=== PATIENT | female | born 1955 | race Caucasian/White ===

== ENCOUNTER → 2016-06-07 | Outpatient (CLI) | payer OTHER | END | disposition home or self-care (01) | LOC: GMAB 11:00 | PROVIDERS: ATTEND Family Medicine | DX: Z00.01 Encounter for general adult medical examination with abnormal findings (principal) ==

== ENCOUNTER → 2016-06-08 | Outpatient (CLI) | payer OTHER | LOC: RESP 13:51 | PROVIDERS: ATTEND Family Medicine | DX: R00.0 Tachycardia, unspecified (principal) ==

== ENCOUNTER → 2019-12-05 | Outpatient (CLI) | payer MEDICARE | LOC: GMAE 11:19 | PROVIDERS: ATTEND Family Medicine | DX: I10 Essential (primary) hypertension (principal); E78.5 Hyperlipidemia, unspecified ==

== ENCOUNTER 2020-01-06 14:46 | Emergency (ER) | payer MEDICARE ==
[2020-01-06] MEDS ORDERED: SODIUM CHLORIDE 0.9% 1000ML 1,000 ML IVS ONE ×2 (15:10→16:34)
[2020-01-06] MEDS ORDERED: SODIUM CHLORIDE 0.9% 1000ML 1,000 ML ONE (15:11)
--- NOTE | 2020-01-06 15:40 | RAD ---
EXAM DESCRIPTION: Chest,1 View CLINICAL HISTORY: COVID + COMPARISON: Chest radiograph dated March 01, 2019 TECHNIQUE: One view radiograph of the chest FINDINGS: Cardiac silhouette shows normal heart size. Pulmonary vascularity is within normal limits. Very subtle hazy alveolar opacities in the peripheral aspect of the bilateral upper lobes. Costophrenic angles are sharp. No pneumothorax. No acute osseous abnormality. IMPRESSION: Very subtle hazy alveolar opacities peripheral aspect bilateral upper lung lobes compatible with infectious/inflammatory processes such as pneumonia (including COVID 19 pneumonia). Recommend follow-up chest radiograph to resolution. Electronically signed by: Gerard Marquis MD 01/06/2020 3:39 PM [facility]
--- NOTE | 2020-01-06 17:05 | ED.PDOC ---
History of Present Illness - General Chief Complaint: Respiratory Problem Stated Complaint: sob, weakness Time Seen by Provider: 01/06/20 15:57 Source: patient, RN notes reviewed, Vital Signs reviewed Exam Limitations: no limitations - History of Present Illness Initial Comments: Patient is a [id number]-[id number]-year-old white female who presents with worsening malaise and fatigue with shortness of breath. Patient was diagnosed with Covid approximately 11 days ago. Patient complains she is not getting any better. Patient denies any fever or chills. She denies any cough at this time. Timing/Duration: getting worse, other - 11 days. Severity: moderate Improving Factors: nothing Worsening Factors: movement Associated Symptoms: malaise, shortness of breath, weakness Allergies/Adverse Reactions: Allergies NO KNOWN ALLERGY Allergy (Verified 01/06/20 15:09) Home Medications: Ambulatory Orders Azithromycin [Zithromax Z-Fox] 250 mg PO DAILY #6 tab 01/06/20 Prochlorperazine Tab [Compazine Tab] 10 mg PO Q6H #15 tab 01/06/20 Review of Systems - Review of Systems Constitutional: States: see HPI, malaise, weakness. Denies: chills, fever EENTM: States: no symptoms reported. Denies: eye pain, blurred vision, double vision Respiratory: States: no symptoms reported, short of breath. Denies: cough Cardiology: States: no symptoms reported. Denies: chest pain, palpitations, sy ncope Gastrointestinal/Abdominal: States: no symptoms reported. Denies: abdominal pain, diarrhea, nausea, vomiting Genitourinary: States: no symptoms reported. Denies: discharge, dysuria, frequency Skin: States: no symptoms reported. Denies: change in color, rash Neurological: States: see HPI, weakness. Denies: headache, tingling, tremors Endocrine: States: no symptoms reported. Denies: increased hunger, increased thirst, increased urine Hematologic/Lymphatic: States: no symptoms reported. Denies: blood clots, easy bleeding All other Systems: Reviewed and Negative, No Change from Baseline Family Medical History - Family History Mother Family History: Unknown Physical Exam - Physical Exam General Appearance: Alert, Anxious, Obvious distress, Well Developed, Well Groomed, Well Hydrated, Well Nourished Eye Exam: bilateral normal Ears, Nose, Throat: hearing grossly normal, normal ENT inspection, normal pharynx Neck: non-tender, full range of motion, supple Respiratory: chest non-tender, no accessory muscle use, respiratory distress - Mild, decreased breath sounds - In the bases bilaterally, rhonchi - In the bases bilaterally Cardiovascular/Chest: normal peripheral pulses, no edema, no gallop, no JVD, no murmur, tachycardia Peripheral Pulses: radial,right: 2+, radial,left: 2+ Gastrointestinal/Abdominal: normal bowel sounds, non tender, soft, no organomegaly Back Exam: normal inspection, no CVA tenderness, no vertebral tenderness Extremity: normal range of motion, non-tender, normal inspection Neurologic: senior interactive developer II-XII nml as tested, no motor/sensory deficits, alert, normal mood/affect, oriented x 3 Skin Exam: normal color, warm/dry Lymphatic: no adenopathy Progress - Progress Progress: Differential diagnosis: Pneumonia, PE, congestive heart failure, dehydration among others. 01/06/20 17:27 Patient states she is feeling much better after the IV fluids. She is still complaining of a headache. We will plan on giving her some IV Toradol and Compazine. And reassess her in 30 minutes. 01/06/20 18:09 Headache has resolved after her IV Compazine, IV Toradol and IV magnesium. We will plan on discharge home at this time. We will treat patient for pneumonia with a prescription for Zithromax and a Medrol Dosepak and Compazine. Patient's oxygen saturation has improved into the low 90s. Additionally, her heart rate is come down approximately 10 to 15% to approximately 110. Plan on discharge home at this time. I discussed this plan of care with the patient she voices understanding and agreement. Aldo Cline M.D. #[id number] - Results/Orders Results/Orders: 01/06/20 17:31 Magnesium Sulfate Inj 1 gm Sodium Chloride 0.9% 100Ml [NS (NACL 0.9%) 100ml] 100 ml IVPB ONCE Laboratory Results - last 24 hr 01/06/20 01/06/20 14:13 14:13 WBC 5.5 RBC 5.01 Hgb 14.4 Hct 41.7 MCV 83.2 MCH 28.7 MCHC 34.5 RDW 14.1 Plt Count 424 H MPV 9.6 Absolute Neuts (auto) 4.20 Absolute Lymphs (auto) 1.00 Absolute Monos (auto) 0.20 Absolute Eos (auto) 0.00 Absolute Basos (auto) 0.10 Neutrophils % 75.6 Lymphocytes % 18.6 L Monocytes % 4.4 Eosinophils % 0.0 L Basophils % 1.4 Sodium 129 L Potassium 3.4 L Chloride 87 L Carbon Dioxide 24 Anion Gap 21.4 H BUN 11 Creatinine 0.83 BUN/Creatinine Ratio 13.3 Random Glucose 104 Serum Osmolality 258.6 L Calcium 9.0 Total Bilirubin 0.9 AST 44 H ALT 23 Alkaline Phosphatase 137 H Serum Total Protein 8.3 H Albumin 3.4 Globulin 4.9 H Albumin/Globulin Ratio 0.7 L EXAM DESCRIPTION: Chest,1 View CLINICAL HISTORY: COVID + COMPARISON: Chest radiograph dated March 01, 2019 TECHNIQUE: One view radiograph of the chest FINDINGS: Cardiac silhouette shows normal heart size. Pulmonary vascularity is within normal limits. Very subtle hazy alveolar opacities in the peripheral aspect of the bilateral upper lobes. Costophrenic angles are sharp. No pneumothorax. No acute osseous abnormality. IMPRESSION: Very subtle hazy alveolar opacities peripheral aspect bilateral upper lung lobes compatible with infectious/inflammatory processes such as pneumonia (including COVID 19 pne umonia). Recommend follow-up chest radiograph to resolution. Electronically signed by: Gerard Marquis MD 01/06/2020 3:39 PM DEVELOPMENTAL TRAINING COUNSELOR Vital Signs 01/06/20 01/06/20 01/06/20 14:50 15:47 17:47 Temperature 98.0 F Pulse Rate [ 129 H 129 H pulse ox] Respiratory 21 16 18 Rate Blood Pressure 104/67 113/61 106/76 [Right Arm] O2 Sat by Pulse 91 L 84 L 90 L Oximetry 01/06/20 18:00 Temperature 98.3 F Pulse Rate [ 119 H pulse ox] Respiratory 18 Rate Blood Pressure 108/56 [Right Arm] O2 Sat by Pulse 95 Oximetry Departure - Departure Clinical Impression: Hypoxia, Dehydration Pneumonia Qualifiers: Pneumonia type: due to unspecified organism Laterality: bilateral Lung location: upper lobe of lung Qualified Code(s): J18.9 - Pneumonia, unspecified organism Migraine headache Qualifiers: Migraine type: without aura Status migrainosus presence: without status migrainosus Intractability: not intractable Qualified Code(s): G43.009 - Migraine without aura, not intractable, without status migrainosus Time of Disposition: 18:13 Disposition: Discharge to Home or Self Care Condition: Good Departure Forms: ED Discharge - Pt. Copy, Patient Portal Self Enrollment Instructions: Pneumonia, Adult (DC), Dehydration, Adult (DC), Headache, Adult (DC) Diet: resume usual diet Activity: increase activity as tolerated Referrals: ANABELL ROBLERO MD [Primary Care Provider] - 1-5 Days Prescriptions: Prochlorperazine Tab [Compazine Tab] 10 mg PO Q6H #15 tab Azithromycin [Zithromax Z-Fox] 250 mg PO DAILY #6 tab Home Medications: Ambulatory Orders Azithromycin [Zithromax Z-Fox] 250 mg PO DAILY #6 tab 01/06/20 Prochlorperazine Tab [Compazine Tab] 10 mg PO Q6H #15 tab 01/06/20
[2020-01-06] MEDS ORDERED: KETOROLAC TROMETHAMINE INJ 30 MG/ML VIAL IV ONE (17:31)
[2020-01-06] MEDS ORDERED: MAGNESIUM SULFATE INJ 1 GM in SODIUM CHLORIDE 0.9% 100ML 100 ML IVPB ONE (17:31)
[2020-01-06] MEDS ORDERED: PROCHLORPERAZINE INJ 10 MG/2 ML VIAL IV ONE (17:31)
[2020-01-06 18:02] VITALS: TEMP 98.3
[2020-01-06 18:24] VITALS: BP 108/50; O2SAT 91
== END 2020-01-06 18:24 | disposition home or self-care (01) ==
LOC: ER 14:46
DX: U07.1 COVID-19 (principal); J12.89 Other viral pneumonia; E86.0 Dehydration; R09.02 Hypoxemia; G43.009 Migraine without aura, not intractable, without status migrainosus
CPT/HCPCS: 36415; 71045; 80053; 85025; J0780; J1885; J3475; J7030; J7050

== ENCOUNTER 2020-01-07 16:47 | Observation (INO) | payer MEDICARE ==
--- NOTE | 2020-01-07 17:46 | CT ---
EXAM: CTA chest with contrast CLINICAL INDICATION: Abnormal D-dimer test COMPARISON: None. TECHNIQUE: CTA of the chest was performed using contiguous axial 2 mm postcontrast sections through the chest including IV contrast with 3-D reconstructions. This exam was performed according to our departmental dose-optimization program, which includes automated exposure control, adjustment of the mA and/or kV according to patient size and/or use of iterative reconstruction technique. FINDINGS: There is no evidence of pulmonary embolism. There are no findings to suggest aortic dissection. A few mildly prominent mediastinal lymph nodes are noted, nonspecific. The visualized portions of the upper abdominal structures are unremarkable. There are multifocal infiltrates and groundglass opacities in the periphery of both lungs. There is no pneumothorax or pleural effusion. IMPRESSION: 1. No evidence of pulmonary embolism. 2. Widespread infiltrates and groundglass opacities in the lungs consistent with pneumonia including the possibility of COVID-19. Electronically signed by: Valentin Lopez MD 01/07/2020 5:44 PM [facility]
[2020-01-07] MEDS ORDERED: AZITHROMYCIN IV 500 MG in SODIUM CHLORIDE 0.9% 250ML 250 ML IVPB ONE (17:54)
[2020-01-07] MEDS ORDERED: DEXAMETHASONE INJ 10 MG/ML VIAL IV ONE (17:54)
--- NOTE | 2020-01-07 17:58 | ED.PDOC ---
History of Present Illness - General Chief Complaint: General Stated Complaint: COVID +/elevated D dimer Time Seen by Provider: 01/07/20 16:54 Source: patient Exam Limitations: no limitations Additional Information: The patient is a 64-year-old female that presents emergency department with complaints of elevated D-dimer on lab work.Number by primary care physician.As requested by the patient's primary care physician the patient needs to be admitted , if she does not meet transfer criteria for transfer - History of Present Illness Initial Comments: Covid positive complaintsWith abnormal lab work sent by primary care physician Timing/Duration: other - 11 days Severity: mild Improving Factors: nothing Worsening Factors: nothing Associated Symptoms: cough Allergies/Adverse Reactions: Allergies NO KNOWN ALLERGY Allergy (Verified 01/06/20 15:09) Home Medications: Ambulatory Orders Azithromycin [Zithromax Z-Fox] 250 mg PO DAILY #6 tab 01/06/20 Prochlorperazine Tab [Compazine Tab] 10 mg PO Q6H #15 tab 01/06/20 Review of Systems - Review of Systems Constitutional: Denies: chills, fever EENTM: Denies: blurred vision, tearing Respiratory: States: cough. Denies: orthopnea, short of breath, stridor Cardiology: Denies: chest pain, palpitations, syncope Gastrointestinal/Abdominal: Denies: see HPI, abdominal pain, diarrhea, nausea Genitourinary: Denies: discharge, frequency, hematuria Musculoskeletal: Denies: back pain, gout, muscle pain, muscle stiffness Skin: Denies: change in color, dryness, lesions Neurological: Denies: anxiety, depressed, emotional problems, pre-existing deficit, seizure Endocrine: Denies: see HPI, excessive sweating All other Systems: Reviewed and Negative Past Medical History (General) - Patient Medical History Hx Congestive Heart Failure: No Surgical History: no surgical history - Activities of Daily Living Hospice Agency (if applicable):: None Family Medical History - Family History Mother Family History: Unknown Physical Exam - Physical Exam General Appearance: Anxious Eye Exam: bilateral normal, bilateral conjunctivae pale - normal Ears, Nose, Throat: normal ENT inspection, normal pharynx, abnormal TM (R) Neck: non-tender, full range of motion, supple Respiratory: chest non-tender, lungs clear, decreased breath sounds Cardiovascular/Chest: normal peripheral pulses, regular rate, rhythm, no edema, tachycardia Peripheral Pulses: radial,right: 2+, radial,left: 2+, posterior tibialis,right: 2+, posterior tibialis,left: 2+ Gastrointestinal/Abdominal: normal bowel sounds, non tender, soft Extremity: normal range of motion, non-tender, normal inspection Neurologic: machine stone polisher II-XII nml as tested, no motor/sensory deficits, alert, normal mood/affect Skin Exam: normal color, warm/dry Progress - Progress Progress: 01/07/20 18:01 Patient presents to emergency department with lab work obtained from a primary care physician dated today. Ovation and D-dimer and ferritin. CT angios negative for any blood clot shows bilateral patchy infiltrates consistent with Covid pneumonia. Patient states that she got Rocephin as her PCPs office today she is given a azithromycin dexamethasone and she states that she is got rEMDESIVIR in the past. The patient's primary care physician requested patient be admitted for overnight observation of her respiratory status. Please note patient in observation. Departure - Departure Clinical Impression: COVID-19, Pneumonia, Pneumonia due to 2019-nCoV Disposition: Admit Patient Departure Forms: ED Discharge - Pt. Copy, Patient Portal Self Enrollment Referrals: ANABELL ROBLERO MD [Primary Care Provider] - 1-2 Weeks Home Medications: Ambulatory Orders Azithromycin [Zithromax Z-Fox] 250 mg PO DAILY #6 tab 01/06/20 Prochlorperazine Tab [Compazine Tab] 10 mg PO Q6H #15 tab 01/06/20
[2020-01-07] MEDS ORDERED: SODIUM CHLORIDE 0.9% 1000ML 1,000 ML IVS PRN (18:00)
--- NOTE | 2020-01-07 19:33 | HP ---
SUPERVISING PHYSICIAN: Michael Randall MD CHIEF COMPLAINT: COVID HISTORY OF PRESENT ILLNESS: This is a 64 year-old female patient that has been feeling poorly since December 25. She was diagnosed with Covid-19 on January 02, 2020. She has been progressively worsening since that time and actually the day prior to coming to her primary care physician's office, she had been in the Emergency Room. They did a workup for Covid-!9 and she was discharged home. She followed up with her primary care physician this morning and Dr. Mendoza called and said she was having significant shortness of breath with weakness and worsening Covid symptoms. She was sent to the Emergency Room for a workup and to monitor her respiratory status. Her initial vital signs were temperature of 97.5, heart rate 125. Blood pressure 109/87, respiratory rate 22, oxygen saturation 95% on room air. She was notably tachypneic and has accessory muscle use. Lab studies have been done at the office and her CBC was unremarkable with PTT of 32, fibrinogen 17, D-dimer 471. Sodium 132, potassium 3, chloride 93, BUN less than 6, creatinine 0.54, calcium 8, magnesium 2, AST 53, LD 914, C- reactive protein 19.4. Troponin was less than 0.2. Blood cultures were drawn. CTA of the chest shows no evidence of pulmonary embolism and widespread infiltrates and ground glass opacities consistent with pneumonia including the possibility of Covid-19. She was placed in observation in the hospital in stable condition. PAST MEDICAL HISTORY: 1. Hyperlipidemia. 2. Hypertension. 3. C-difficile infection. 4. Fibromyalgia. PAST SURGICAL HISTORY: 1. Hysterectomy. 2. Tonsillectomy. CURRENT MEDICATIONS: ALLERGIES: Levaquin, Viibryd. FAMILY HISTORY: Positive for colon cancer, hypertension. SOCIAL HISTORY: She is , she has 2 children. She denies tobacco or illicit drug use. She does drink alcohol on a social basis. REVIEW OF SYSTEMS: GENERAL: Positive for fatigue, negative for fever or weight changes. HEENT: Negative for sinus symptoms, ear pain, vision changes, sore throat. RESPIRATORY: Positive for coughing, wheezing, shortness of breath CARDIAC: Negative for chest pain, palpitations, tachycardia. GI: Negative for nausea, vomiting, diarrhea or constipation. GENITOURINARY: Negative for hematuria, dysuria, polyuria. SKIN: Negative for lesions or rashes. NEUROLOGICAL: Positive for weakness, negative for dizziness, headaches,or seizures. PHYSICAL EXAMINATION: GENERAL: This is a 64 year-old female patient who is sitting up in her hospital bed. She is in mild respiratory distress. HEENT: Normocephalic and atraumatic. Pupils are reactive and reactive. Oropharynx is clear. NECK: Supple without mass. CHEST: A few scattered rhonchi but otherwise diminished throughout. She is slight tachypneic, especially with any exertion. CARDIOVASCULAR: ABDOMEN: Soft, nondistended, non-tender. Bowel sounds are positive. SKIN: Warm and dy. NEUROLOGIC: She is awake, alert, and oriented x3. Cranial nerves II through XII are grossly intact as tested. All labs and films are as per the history of present illness. ASSESSMENT: 1. Covid-19 pneumonitis with failed outpatient treatment. 2. History of C-difficile infection. 3. Hypertension. 4. Fibromyalgia. 5. Hyperlipidemia. PLAN: The patient has been placed in observation. She will have Covid-19 and pneumonia guidelines including Rocephin, Zithromax and Remdesivir with albuterol both p.r.n. and scheduled and Decadron. She will have a PPI for ulcer prophylaxis. Her home medications will be restarted as soon as they are verified. I will only give her 3 doses of ceftriaxone due to her increased probability of C-difficile infection. Will monitor her labs closely. Hopefully, she can be discharged in the next day or so. #[id number] [facility]
[2020-01-07] MEDS ORDERED: SODIUM CHLORIDE 0.9% (FLUSH) 10 ML SYG IV PRN (19:51)
[2020-01-07] MEDS ORDERED: ONDANSETRON INJ 4 MG/2 ML VIAL IV PRN (19:51)
[2020-01-07] MEDS ORDERED: ACETAMINOPHEN 325 MG TAB PO PRN (19:51)
[2020-01-07] MEDS ORDERED: ALBUTEROL INHALER 64 PUFF/8GM INH PRN (19:56)
[2020-01-07] MEDS ORDERED: REMDESIVIR 200 MG in SODIUM CHLORIDE 0.9% 250ML 250 ML IVPB ONE (19:56)
[2020-01-07] MEDS ORDERED: cefTRIAXone SODIUM 1 GM in SODIUM CHL 0.9% 50ML MIN-BAG+ 50 ML IVPB ONE (20:00)
[2020-01-07] MEDS ORDERED: IV SET AND CAP CHANGE INJ INJ SCH (20:00)
[2020-01-07] MEDS ORDERED: SODIUM CHLORIDE 0.9% 250ML 250 ML ONE (20:47)
[2020-01-07] MEDS ORDERED: REMDESIVIR IV 100 MG VIAL ONE (20:48)
[2020-01-07] MEDS ORDERED: SODIUM CHL 0.9% 50ML MIN-BAG+ 50 ML IVPB ONE (20:48)
[2020-01-07] MEDS ORDERED: cefTRIAXone SODIUM 1 GM VIAL ONE (20:48)
[2020-01-07] MEDS: SODIUM CHLORIDE 0.9% (FLUSH) 10 ML SYG IV SCH (21:00)
[2020-01-07] MEDS: ENOXAPARIN SODIUM 40 MG/0.4 ML SYG SUBCU SCH (21:00)
[2020-01-07] MEDS: guaiFENesin ER TAB 600 MG TAB PO SCH (21:00)
[2020-01-07] MEDS ORDERED: NON-FORMULARY MEDICATION 1 EA MIS (Melatonin [Melatonin] 10 MG) PO SCH (21:00)
[2020-01-07] MEDS ORDERED: DICYCLOMINE HCL 20 MG TAB PO PRN (21:16)
[2020-01-07] MEDS ORDERED: MELATONIN 3 MG TAB ONE (21:24)
[2020-01-07] MEDS: PREGABALIN 100 MG CAP PO SCH (21:29)
[2020-01-07] MEDS: ALBUTEROL INHALER 64 PUFF/8GM INH SCH (22:39)
[2020-01-08] MEDS: PANTOPRAZOLE SODIUM IV 40 MG VIAL IV SCH (06:03)
[2020-01-08] MEDS ORDERED: PROBIOTIC PO SCH (07:00)
--- NOTE | 2020-01-08 07:13 | RAD ---
EXAM: Chest,1 View HISTORY: covid COMPARISON: Chest 1 View AP 01/06/2020 CTA chest 01/07/2020 TECHNIQUE: Chest 1 View AP FINDINGS: Trachea midline. Heart size normal. No significant pleural effusion or pneumothorax. Overall no significant change in mild scattered hazy bilateral lung opacities. IMPRESSION: Overall no significant change in mild scattered hazy bilateral lung opacities. Electronically signed by: Juan Cloud MD 01/08/2020 7:12 AM INK GRINDER
[2020-01-08] MEDS ORDERED: AZITHROMYCIN IV 500 MG VIAL IVPB ONE (07:41)
[2020-01-08] MEDS ORDERED: cefTRIAXone SODIUM 1 GM VIAL ONE (07:42)
[2020-01-08] MEDS ORDERED: SODIUM CHLORIDE 0.9% 250ML 250 ML ONE (07:42)
[2020-01-08] MEDS ORDERED: SODIUM CHL 0.9% 50ML MIN-BAG+ 50 ML IVPB ONE (07:42)
[2020-01-08] MEDS ORDERED: INSULIN 70/30 (HUMAN) 100 UNITS/ML PEN SUBCU ONE (08:01)
[2020-01-08] MEDS ORDERED: POTASSIUM CHLORIDE 20 MEQ TAB PO ONE (08:24)
[2020-01-08] MEDS: ALBUTEROL INHALER 64 PUFF/8GM INH SCH ×4 (08:46→20:30)
[2020-01-08] MEDS ORDERED: cefTRIAXone SODIUM 1 GM in SODIUM CHL 0.9% 50ML MIN-BAG+ 50 ML IVPB SCH (09:00)
[2020-01-08] MEDS ORDERED: BIFIDOBACTERIUM INFANTIS 4 MG CAP PO SCH (09:00)
[2020-01-08] MEDS: POTASSIUM CHLORIDE 10 MEQ TAB PO SCH (09:11)
[2020-01-08] MEDS: guaiFENesin ER TAB 600 MG TAB PO SCH ×2 (10:01→20:05)
[2020-01-08] MEDS: SODIUM CHLORIDE 0.9% (FLUSH) 10 ML SYG IV SCH ×2 (10:02→20:06)
[2020-01-08] MEDS: DEXAMETHASONE INJ 10 MG/ML VIAL IV SCH (10:02)
[2020-01-08] MEDS: AZITHROMYCIN IV 500 MG in SODIUM CHLORIDE 0.9% 250ML 250 ML IVPB SCH (10:07)
[2020-01-08] MEDS: hydroCHLOROthiazide 12.5 MG CAP PO SCH (10:42)
[2020-01-08] MEDS: LISINOPRIL 10 MG TAB PO SCH (10:42)
[2020-01-08] MEDS ORDERED: POTASSIUM CHLORIDE 20 MEQ TAB ONE (12:51)
[2020-01-08] MEDS: REMDESIVIR 100 MG in SODIUM CHLORIDE 0.9% 250ML 250 ML IVPB SCH (14:44)
[2020-01-08] MEDS: BIFIDOBACTERIUM INFANTIS 4 MG CAP PO SCH ×3 (14:44→20:05)
[2020-01-08] MEDS ORDERED: TEMAZEPAM 15 MG CAP PO PRN (15:36)
[2020-01-08] MEDS ORDERED: LORATADINE 10 MG TAB PO ONE (19:04)
[2020-01-08] MEDS ORDERED: MONTELUKAST 10 MG TAB ONE (19:05)
[2020-01-08] MEDS ORDERED: ASPIRIN (ENTERIC COATED) 81 MG TAB PO ONE (19:05)
[2020-01-08] MEDS ORDERED: MELATONIN 3 MG TAB ONE (19:05)
[2020-01-08] MEDS ORDERED: INSULIN LISPRO 100 UNITS/ML PEN SUBCU ONE (19:45)
[2020-01-08] MEDS: PREGABALIN 100 MG CAP PO SCH (20:05)
[2020-01-08] MEDS: ENOXAPARIN SODIUM 40 MG/0.4 ML SYG SUBCU SCH (20:05)
[2020-01-08] MEDS ORDERED: MELATONIN 3 MG TAB PO SCH (21:00)
[2020-01-08] MEDS ORDERED: ASPIRIN (ENTERIC COATED) 81 MG TAB PO SCH (21:00)
[2020-01-08] MEDS ORDERED: LORATADINE 10 MG TAB PO SCH (21:00)
[2020-01-08] MEDS ORDERED: MONTELUKAST 10 MG TAB PO SCH (21:00)
[2020-01-09] MEDS: PANTOPRAZOLE SODIUM IV 40 MG VIAL IV SCH (06:08)
[2020-01-09] MEDS ORDERED: AZITHROMYCIN IV 500 MG VIAL IVPB ONE (07:07)
[2020-01-09] MEDS ORDERED: cefTRIAXone SODIUM 1 GM VIAL ONE (07:08)
[2020-01-09] MEDS ORDERED: SODIUM CHL 0.9% 50ML MIN-BAG+ 50 ML IVPB ONE (07:08)
[2020-01-09] MEDS ORDERED: SODIUM CHLORIDE 0.9% 250ML 250 ML ONE (07:08)
--- NOTE | 2020-01-09 07:19 | RAD ---
EXAM: XR Chest, 1 View CLINICAL HISTORY: The patient is 64 years old and is Female; covid TECHNIQUE: Single portable upright view of the chest. COMPARISON: January 08, 2020 0659 hours. FINDINGS: Lungs: Lung aeration is not significantly changed. Pleural space: Unremarkable. No pneumothorax. Heart: Cardiomediastinal silhouette is not significantly changed given the differences in technique. Mediastinum: See above. Bones/joints: The bones and joints are unchanged as visualized. Upper abdomen: No free air in the visualized upper abdomen. IMPRESSION: No significant change from the prior exam. Electronically signed by: Rosio Law MD 01/09/2020 7:18 AM [facility]
[2020-01-09] MEDS: DEXAMETHASONE INJ 10 MG/ML VIAL IV SCH (08:03)
[2020-01-09] MEDS: LISINOPRIL 10 MG TAB PO SCH (08:03)
[2020-01-09] MEDS: POTASSIUM CHLORIDE 10 MEQ TAB PO SCH (08:03)
[2020-01-09] MEDS: guaiFENesin ER TAB 600 MG TAB PO SCH (08:04)
[2020-01-09] MEDS: hydroCHLOROthiazide 12.5 MG CAP PO SCH (08:04)
[2020-01-09] MEDS: SODIUM CHLORIDE 0.9% (FLUSH) 10 ML SYG IV SCH (08:05)
--- NOTE | 2020-01-09 08:47 | PN ---
SUPERVISING PHYSICIAN: Michael Randall MD DATE: 01/08/20 SUBJECTIVE: The patient is sitting up in bed. She feels much better. She is still quite weak and somewhat short of breath, but has improved a lot since yesterday. OBJECTIVE: VITAL SIGNS: Temperature 98, heart rate 102, blood pressure 116/72, respiratory rate 16, O2 saturation 95% on 2 liters nasal cannula. It has dropped as low as 93%. RESPIRATORY: Diminished breath sounds throughout. CARDIAC: Regular rate and rhythm. NEUROLOGIC: Awake, alert and oriented times three. LABORATORY: WBCs 2.2, hemoglobin 11.8, hematocrit 34. PTT 34.5, fibrinogen 675, D-dimer 166. Potassium 3.5, chloride 100, calcium 8.1, magnesium 2.1, C- reactive protein 19.7. MICROBIOLOGY: Preliminary blood cultures show no growth. RADIOLOGY: Chest x-ray shows overall no significant change in mild scattered hazy bilateral lung opacities. All other labs and films have been reviewed via the EMR. ASSESSMENT: 1. COVID-19 pneumonitis with failed outpatient treatment. 2. History of C-difficile infection. 3. Hypertension. 4. Fibromyalgia. 5. Hyperlipidemia. PLAN: We will continue present supportive care including her present medications as well as the COVID guidelines. I have given her some potassium replacement. I ordered routine COVID lab and x-ray in the morning. Hopefully, she can discharge tomorrow. #[id number] [facility]
[2020-01-09] MEDS ORDERED: cefTRIAXone SODIUM 1 GM in SODIUM CHL 0.9% 50ML MIN-BAG+ 50 ML IVPB SCH (09:01)
[2020-01-09] MEDS: AZITHROMYCIN IV 500 MG in SODIUM CHLORIDE 0.9% 250ML 250 ML IVPB SCH (09:21)
[2020-01-09 10:41] VITALS: BP 128/73; TEMP 98.2; O2SAT 92
[2020-01-09] MEDS: REMDESIVIR 100 MG in SODIUM CHLORIDE 0.9% 250ML 250 ML IVPB SCH (11:03)
--- NOTE | 2020-01-09 14:30 | DS ---
SUPERVISING PHYSICIAN: Michael Randall MD ADMISSION DIAGNOSIS: 1. COVID-19 pneumonitis with failed outpatient treatment. 2. History of C-difficile infection. 3. Hypertension. 4. Fibromyalgia. 5. Hyperlipidemia. DISCHARGE DIAGNOSIS: 1. COVID-19 pneumonitis with failed outpatient treatment. 2. History of C-difficile infection. 3. Hypertension. 4. Fibromyalgia. 5. Hyperlipidemia. HOSPITAL COURSE: This is a 64-year-old female who has been feeling poorly since about 12/26/19, but was actually diagnosed with COVID on 01/02/20. Symptoms progressively worsened and she went to her primary care physician's office on 01/07/20. Due to shortness of breath and weakness, she was sent to the Emergency Room. In the ER, she was tachycardic, oxygen saturation was preserved at 95%, but she did have slightly elevated D-dimer at 471. CRP was elevated at 19.4 as well. For those reasons, she was admitted to the hospital. She was placed on typical treatments for COVID including dexamethasone, Remdesivir, azithromycin and Rocephin. She continued to not require any oxygen and felt a lot better this morning on day of discharge. Upon examination, the patient is alert, not complaining of any shortness of breath. She denies any nausea or vomiting. She will be discharged today in stable condition. I have ordered albuterol HFA to be taken 2 puffs 4 times a day for the next 14 days. I also put her on 5 more days of dexamethasone. I put her on anticoagulation at 2.5 mg b.i.d. for a total of 14 days, guaifenesin ER 600 mg b.i.d. for 10 days and azithromycin 250 mg for another 3 days as well. She has been instructed if she has any worsening of symptoms, she may return to the Emergency Room, but needs to followup with her primary care physician in one to two weeks as well. #[id number] [facility]
== END 2020-01-09 14:09 | disposition home or self-care (01) ==
LOC: ER 16:47 → MS 19:32
PROVIDERS: ADMIT Nurse Practitioner Acute Care; ATTEND Nurse Practitioner
DX: U07.1 COVID-19 (principal); J12.89 Other viral pneumonia; I10 Essential (primary) hypertension; M79.7 Fibromyalgia; E78.5 Hyperlipidemia, unspecified; R53.1 Weakness; Z86.19 Personal history of other infectious and parasitic diseases; Z88.1 Allergy status to other antibiotic agents; Z88.8 Allergy status to other drugs, medicaments and biological substances
CPT/HCPCS: 96366 ×2; 96367; 96365; 96375 ×2; 96376 ×2; 96372 ×2; J0696 ×3; J7030; J7050 ×9; J1650 ×2; J1100 ×3; J0456 ×3; A4216 ×2; 85379 ×2; 80053 ×2; 36415 ×4; 85384 ×2; 80076; 86140 ×2; 85025 ×2; 82550 ×2; 87040 ×2; 83615 ×2; 83735 ×2; 85730 ×3; 85610; 84484; 71045 ×2; 71275; 94760 ×3; 94664; 94640 ×3; 94762; 99285; G0378

== ENCOUNTER → 2020-01-07 | Outpatient (CLI) | payer MEDICARE | LOC: GMAE 14:26 | PROVIDERS: ATTEND Family Medicine | DX: U07.1 COVID-19 (principal); R09.02 Hypoxemia; R71.8 Other abnormality of red blood cells ==

== ENCOUNTER → 2020-01-31 | Outpatient (CLI) | payer MEDICARE | LOC: GMAE 10:44 | PROVIDERS: ATTEND Family Medicine | DX: R60.0 Localized edema (principal) ==

== ENCOUNTER → 2020-01-31 | Outpatient (CLI) | payer MEDICARE ==
--- NOTE | 2020-01-31 16:18 | US ---
EXAM DESCRIPTION: Venous,Lower Extremity LT (accession [id number]), Venous,Lower Extremity RT (accession [id number]): Ultrasound. CLINICAL HISTORY: EDEMA. Bilateral lower extremity. COMPARISON: None Available. TECHNIQUE: Two -dimensional and doppler sonographic evaluation of the deep venous system of the bilateral lower extremities. FINDINGS: Doppler evaluation shows normal color flow and normal phasicity and augmentation of the bilateral common femoral veins, junctions with the bilateral proximal saphenous veins, femoral veins, popliteal veins, greater saphenous veins, peroneal and posterior tibial veins. These veins showed normal occlusion with transducer pressure. Two-dimensional survey showed no echogenic clot within these veins. IMPRESSION: Duplex ultrasound evaluation of the bilateral lower extremity deep venous systems showing no evidence of thrombosis. Electronically signed by: Lonnie Aayla MD 01/31/2020 4:16 PM CUBE MACHINE TENDER
--- NOTE | 2020-01-31 16:18 | US ---
EXAM DESCRIPTION: Venous,Lower Extremity LT (accession [id number]), Venous,Lower Extremity RT (accession [id number]): Ultrasound. CLINICAL HISTORY: EDEMA. Bilateral lower extremity. COMPARISON: None Available. TECHNIQUE: Two -dimensional and doppler sonographic evaluation of the deep venous system of the bilateral lower extremities. FINDINGS: Doppler evaluation shows normal color flow and normal phasicity and augmentation of the bilateral common femoral veins, junctions with the bilateral proximal saphenous veins, femoral veins, popliteal veins, greater saphenous veins, peroneal and posterior tibial veins. These veins showed normal occlusion with transducer pressure. Two-dimensional survey showed no echogenic clot within these veins. IMPRESSION: Duplex ultrasound evaluation of the bilateral lower extremity deep venous systems showing no evidence of thrombosis. Electronically signed by: Lonnie Ayala MD 01/31/2020 4:16 PM DATA SECURITY COORDINATOR
== END ==
LOC: US 13:54
PROVIDERS: ATTEND Family Medicine
DX: R60.0 Localized edema (principal)